=== PATIENT | female | born 1955 ===

== ENCOUNTER → 2017-01-08 | Outpatient (CLI) | payer BC ==
--- NOTE | 2017-01-09 14:58 | CR ---
EXAM DATE: 01/08/17 PATIENT'S AGE: 61 Patient: DOMINGA MOODY Facility: [place], [place] : 1955 Study: XRay Knee Left [id number]/26/2017 2:10:01 PM Ordering Physician: Silas Johnson Final Report: Indication: Left knee pain Technique: Four views of the left knee. Comparison: No prior. Findings: The left knee joint space appears mildly narrowed. 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 There is no acute fracture seen. No definite suprapatellar joint effusion. There appears to be an ossicle or possibly a joint body posterior to the medial tibial spine. No erosive change or definite chondrocalcinosis. Impression: On the left, there is mild narrowing of medial joint space compartment with mild degenerative arthrosis changes present. Dictated by Roderick Houston MD @ Jan 09 2017 2:23PM (Electronic Signature) Report Signed by Proxy. BAUTISTA
== END ==
LOC: MW.CHORTHO 07:55
PROVIDERS: ATTEND Orthopaedic Surgery
DX: M25.562 Pain in left knee (principal); M17.12 Unilateral primary osteoarthritis, left knee
CPT/HCPCS: 73564-26-LT; 73564-LT